=== PATIENT | male | born 1980 | race American Indian/Alaskan Native ===

== ENCOUNTER 2020-10-06 03:24 | Emergency (ER) | payer BC ==
[2020-10-06] MEDS ORDERED: ACETAMINOPHEN 500 MG TAB PO ONE (05:17)
[2020-10-06 05:18] VITALS: BP 162/122
--- NOTE | 2020-10-06 06:13 | Cat Scan Report ---
CT HEAD WITHOUT CONTRAST INDICATION: headache TECHNIQUE: All CT scans at this location are performed using CT dose reduction for ALARA by means of automated exposure control. COMPARISON: None available. FINDINGS: BRAIN: No hemorrhage or mass effect are seen. No evidence of acute infarction is noted. ORBITS: Normal as visualized. SOFT TISSUES OF HEAD: Normal. CALVARIUM: Normal. VISUALIZED PARANASAL SINUSES AND MASTOID AIR CELLS: Clear. ADDITIONAL FINDINGS: None. IMPRESSION: No acute intracranial abnormality. Signer Name: Jose Cohn MD Signed: 10/06/2020 6:08 AM Workstation Name: [id number]
--- NOTE | 2020-10-06 06:23 | Emergency Department Report ---
ED General Adult HPI - General Chief complaint: High BP Stated complaint: HBP Source: patient Mode of arrival: Ambulatory Limitations: No Limitations - History of Present Illness Initial comments: Patient is a 40-year-old -Citizen Of [place] male with a history of hypertension, and noncompliant with medications who presents to the ED with complaint of acute onset persistent diffuse headache for the last 2 days with elevated blood pressure. Patient states that he has a prescription of amlodipine 10 mg to be taken daily but has not taken the medications in over 1 year. Patient states that when he started experiencing headache he decided to take amlodipine 10 mg tablets but his blood pressure has continued to be elevated in the 180s systolic. Patient denies chest pain, shortness of breath, neck pain, dizziness, syncope, change in vision, nausea and vomiting, fever, chills, cough, traumatic injury or heavy lifting, abdominal pain, numbness and tingling or weakness of up per and lower extremities bilaterally or facial numbness and tingling. MD Complaint: headache, elevated blood pressure -: Sudden, days(s) (2) Location: head Severity scale (0 -10): 0 Quality: aching, sharp Consistency: constant Improves with: none Worsens with: none Associated Symptoms: denies other symptoms, headaches. denies: confusion, chest pain, cough, diaphoresis, fever/chills, loss of appetite, malaise, nausea/vomiting, rash, seizure, shortness of breath, syncope, weakness, other Treatments Prior to Arrival: none - Related Data Previous Rx's Medication Instructions Recorded Last Taken Type Butalb/Acetamin/Caff 50-325-40 1 - 2 tab PO Q6HR PRN #15 tab 10/06/20 Unknown Rx [Fioricet 50-325-40] Ibuprofen [Motrin] 600 mg PO Q8H PRN #30 tablet 10/06/20 Unknown Rx Lisinopril/Hydrochlorothiazide 1 tab PO QDAY #30 tab 10/06/20 Unknown Rx [Zestoretic 20-12.5 mg] Allergies Allergy/AdvReac Type Severity Reaction Status Date / Time No Known Allergies Allergy Unverified 10/06/20 05:24 ED Review of Systems ROS: Stated complaint: HBP Other details as noted in HPI Constitutional: denies: chills, fever Eyes: denies: eye pain, eye discharge, vision change ENT: denies: ear pain, throat pain Respiratory: denies: cough, shortness of breath, wheezing Cardiovascular: denies: chest pain, palpitations Endocrine: no symptoms reported Gastrointestinal: denies: abdominal pain, nausea, diarrhea Genitourinary: denies: urgency, dysuria Musculoskeletal: denies: back pain, joint swelling, arthralgia Skin: denies: rash, lesions Neurological: headache. denies: weakness, paresthesias Psychiatric: denies: anxiety, depression Hematological/Lymphatic: denies: easy bleeding, easy bruising ED Past Medical Hx - Past Medical History Previous Medical History?: Yes Hx Hypertension: Yes Hx Psychiatric Treatment: Yes (Depression) - Surgical History Past Surgical History?: No - Social History Smoking Status: Never Smoker Substance Use Type: None - Medications Home Medications: Home Medications Medication Instructions Recorded Confirmed Last Taken Type Butalb/Acetamin/Caff 50-325-40 1 - 2 tab PO Q6HR PRN #15 tab 10/06/20 Unknown Rx [Fioricet 50-325-40] Ibuprofen [Motrin] 600 mg PO Q8H PRN #30 tablet 10/06/20 Unknown Rx Lisinopril/Hydrochlorothiazide 1 tab PO QDAY #30 tab 10/06/20 Unknown Rx [Zestoretic 20-12.5 mg] ED Physical Exam - General Limitations: No Limitations General appearance: alert, in no apparent distress - Head Head exam: Present: atraumatic, normocephalic, normal inspection - Eye Eye exam: Present: normal appearance, PERRL, EOMI Pupils: Present: normal accommodation - ENT ENT exam: Present: normal exam, normal orophraynx, mucous membranes moist, TM's normal bilaterally, normal external ear exam - Neck Neck exam: Present: normal inspection, full ROM - Respiratory Respiratory exam: Present: normal lung sounds bilaterally. Absent: respiratory distress, wheezes, rales, chest wall tenderness - Cardiovascular Cardiovascular Exam: Present: regular rate, normal rhythm, normal heart sounds. Absent: systolic murmur, diastolic murmur, rubs, gallop - GI/Abdominal GI/Abdominal exam: Present: soft, normal bowel sounds. Absent: tenderness, guarding, rebound, hyperactive bowel sounds, hypoactive bowel sounds, organomegaly - Extremities Exam Extremities exam: Present: normal inspection, full ROM, normal capillary refill - Back Exam Back exam: Present: normal inspection, full ROM. Absent: tenderness, CVA tenderness (R), CVA tenderness (L), muscle spasm, paraspinal tenderness, vertebral tenderness - Neurological Exam Neurological exam: Present: alert, oriented X3, CN II-XII intact, normal gait, reflexes normal - Psychiatric Psychiatric exam: Present: normal affect, normal mood - Skin Skin exam: Present: warm, dry, intact, normal color. Absent: rash ED Course Vital Signs 10/06/20 05:08 Temperature 98.4 F Pulse Rate 90 Respiratory 18 Rate Blood Pressure 162/122 O2 Sat by Pulse 94 Oximetry ED Medical Decision Making - Radiology Data Radiology results: report reviewed, image reviewed Findings [facility] [address] [place] [address] Cat Scan Report Signed Patient: KASSIDY UGARTE MR#: [id number] : 1980 Acct:[id number] Age/Sex: 40 / M ADM Date: 10/06/20 Loc: ED Attending Dr: Ordering Physician: SYLVIE NOLEN Date of Service: 10/06/20 Procedure(s): CT head/brain wo con Accession Number(s): [id number] cc: SYLVIE NOLEN CT HEAD WITHOUT CONTRAST INDICATION: headache TECHNIQUE: All CT scans at this location are performed using CT dose reduction for ALARA by means of automated exposure control. COMPARISON: None available. FINDINGS: BRAIN: No hemorrhage or mass effect are seen. No evidence of acute infarction is noted. ORBITS: Normal as visualized. SOFT TISSUES OF HEAD: Normal. CALVARIUM: Normal. VISUALIZED PARANASAL SINUSES AND MASTOID AIR CELLS: Clear. ADDITIONAL FINDINGS: None. IMPRESSION: No acute intracranial abnormality. Signer Name: Jose Cohn MD Signed: 10/06/2020 6:08 AM Workstation Name: [id number] Transcribed By: GJ Dictated By: Jose Cohn MD Electronically Authenticated By: Jose Cohn MD Signed Date/Time: 10/06/20607 DD/ 5 TD/TT: - Medical Decision Making This is a 40-year-old -Citizen Of [place] male with a history of hypertension, and noncompliant with medications who presents to the ED with complaint of acute onset persistent diffuse headache for the last 2 days with elevated blood pressure. Patient states that he has a prescription of amlodipine 10 mg to be taken daily but has not taken the medications in over 1 year. Patient states that when he started experiencing headache he decided to take amlodipine 10 mg tablets but his blood pressure has continued to be elevated in the 180s systol ic. In the ED, patient is alert and oriented x3 and is not in distress but hypertensive in triage. Patient was treated for headache in the ED. Patient was advised to take an additional amlodipine 10 mg tablet that he had with him. The head CT scan without contrast showed no acute intracranial abnormalities or hemorrhage. On reevaluation, patient's pain is well controlled medications. The final blood pressure was 154/104 after 2 hours in the ED. Patient was discharged home with additional blood pressure medication lisinopril HCTZ 20- 12.5 mg daily in addition to amlodipine 10 mg daily tablet the patient has been taking. Patient was advised to follow-up with his primary care physician in 3 to 5 days for reevaluation or return to the ED immediately if symptoms get worse. - Differential Diagnosis Tension headache; cluster headache; migraine headache; hypertension Critical care attestation.: If time is entered above; I have spent that time in minutes in the direct care of this critically ill patient, excluding procedure time. ED Disposition Clinical Impression: Uncontrolled stage 2 hypertension Acute tension headache Qualifiers: Intractability: not intractable Qualified Code(s): G44.209 - Tension-type heada janet, unspecified, not intractable Disposition: DC-01 TO HOME OR SELFCARE Is pt being admited?: No Does the pt Need Aspirin: No Condition: Stable Instructions: Hypertension (ED), Tension Headache, Adult, [id number], Hypertension, Adult, [id number] Additional Instructions: The head CT scan without contrast showed no acute intracranial abnormalities or hemorrhage. Take medication with food, drink plenty of fluids and follow-up with your primary care physician in 5 to 7 days for reevaluation. Return to the ED immediately if symptoms get worse. Prescriptions: Butalb/Acetamin/Caff 50-325-40 [Fioricet 50-325-40] 1 - 2 tab PO Q6HR PRN #15 tab PRN Reason: Headache Ibuprofen [Motrin] 600 mg PO Q8H PRN #30 tablet PRN Reason: Pain Lisinopril/Hydrochlorothiazide [Zestoretic 20-12.5 mg] 1 tab PO QDAY #30 tab Referrals: MARYBEL MILLER MD [Staff Physician] - 3-5 Days Time of Disposition: 06:18 Print Language: PANAMANIAN
== END 2020-10-06 06:50 | disposition home or self-care (01) ==
LOC: ED 03:24
DX: I10 Essential (primary) hypertension (principal); G44.209 Tension-type headache, unspecified, not intractable; F32.9 Major depressive disorder, single episode, unspecified; Z79.899 Other long term (current) drug therapy
CPT/HCPCS: 70450